=== PATIENT | male | born 1965 | race Two or more races ===

== ENCOUNTER 2018-03-30 22:44 | Emergency (ER) | payer MEDICAID, OTHER ==
[~2018-03-30] VITALS: Ht 162.6 cm; Wt 77.1 kg
[2018-03-30] MEDS ORDERED: ONDANSETRON HCL 4 MG/2 ML VIAL IV ONE (23:15)
[2018-03-30] MEDS ORDERED: HYDROmorphone HCL 2 MG/ML VL IV ONE (23:15)
[2018-03-31 01:15] VITALS: BP 145/76
== END 2018-03-31 01:50 | disposition home or self-care (01) ==
LOC: EDBD 22:44 → ER 22:46
DX: S82.031A Displaced transverse fracture of right patella, initial encounter for closed fracture (principal); M25.461 Effusion, right knee; J45.909 Unspecified asthma, uncomplicated; E11.9 Type 2 diabetes mellitus without complications; I10 Essential (primary) hypertension; F12.90 Cannabis use, unspecified, uncomplicated; W01.198A Fall on same level from slipping, tripping and stumbling with subsequent striking against other object, initial encounter; Y93.89 Activity, other specified; Y99.8 Other external cause status; Y92.89 Other specified places as the place of occurrence of the external cause
CPT/HCPCS: 29505; 73562; J2405

== ENCOUNTER 2020-06-22 06:45 | Inpatient (IN) | payer OTHER ==
[~2020-06-22] VITALS: Ht 162.6 cm; Wt 79.4 kg
[~2020-06-22 06:45] MED LIST: ASPI-543 PO; ATOR-47 PO; FERR-20 PO; LISI40TA11 PO; METF-370 PO
[2020-06-22] MEDS ORDERED: IOHEXOL 350 MG/ML 100ML IJ ONE ×3 (07:29→08:32)
[2020-06-22] MEDS ORDERED: LIDOCAINE 2%HCL (LOCAL ANESTH.) INJ 20ML MDV ONE (07:29)
[2020-06-22] MEDS ORDERED: HEPARIN IN NS 1000Units/500mL 1,500 ML ONE (07:30)
[2020-06-22] MEDS ORDERED: VERAPAMIL 2.5MG/ML INJ 2ML VIAL IV ONE (07:56)
[2020-06-22] MEDS ORDERED: ANGIOMAX 250 MG VIAL IV ONE (07:56)
[2020-06-22] MEDS ORDERED: HEPARIN SODIUM (PORCINE) 5000 UNITS/ML 1ML VIAL ONE (07:56)
[2020-06-22] MEDS ORDERED: MIDAZOLAM HCL 1MG/1ML-2 ML VIAL ONE (07:57)
[2020-06-22] MEDS ORDERED: SODIUM CHL 0.9% 0 ML ONE (07:57)
[2020-06-22] MEDS ORDERED: fentaNYL CITRATE 100 MCG/2 ML VL ONE (07:57)
[2020-06-22] MEDS ORDERED: HYDROcodone-ACET 5/325MG TAB PO PRN ×2 (09:00→13:15)
[2020-06-22] MEDS ORDERED: NITROGLYCERIN 0.4 MG SL TAB SL PRN (09:00)
[2020-06-22] MEDS ORDERED: MORPHINE SULF INJ 2 MG/ML SYRINGE 1ML IV PRN ×2 (09:00→13:15)
[2020-06-22] MEDS ORDERED: ACETAMINOPHEN 500 MG TAB PO PRN ×2 (09:00→13:15)
[2020-06-22] MEDS ORDERED: DEXTROSE (50%) 50ML SYRG IV PRN (09:30)
[2020-06-22] MEDS ORDERED: ASPirin 325 MG TAB PO ONE (09:30)
[2020-06-22] MEDS ORDERED: ASPirin 81 mg TAB PO SCH (10:00)
[2020-06-22] MEDS ORDERED: FERROUS SULFATE 325 MG TAB PO SCH (10:00)
[2020-06-22] MEDS ORDERED: LISINOPRIL 20 MG TAB PO SCH (10:00)
[2020-06-22] MEDS ORDERED: ENOXAPARIN SOD 80 MG/0.8ML SYRINGE SC SCH (10:00)
[2020-06-22] MEDS ORDERED: OPTISON 3ml Vial for INJ IV ONE (10:20)
[2020-06-22 11:19] LABS: Basophils # (auto) 0 10 ^3/uL (0-0.2); Basophils % (auto) 0.3 % (0.0-2.0); Eosinophils # (auto) 0 10 ^3/uL (0-0.8); Eosinophils % (auto) 0.7 % (0.0-7.0); Hematocrit 39.8 % (41.0-53.0); Hemoglobin 13.9 g/dL (13.5-17.5); Lymphocytes # (auto) 1.4 10 ^3/uL (0.4-5.4); Lymphocytes % (auto) 27.6 % (10.0-50.0); Mean Corpuscular Hemoglobin 30.2 pg (28.0-32.0); Mean Corpuscular Volume 86.3 fL (80.0-100.0); Monocytes # (auto) 0.2 10 ^3/uL (0-1.3); Monocytes % (auto) 3.2 % (0.0-12.0); Neutrophils # (auto) 3.5 10 ^3/uL (1.6-8.6); Neutrophils % (auto) 68.2 % (37.0-80.0); Platelet Count (auto) 240 10^3/uL (140-450); Red Blood Cells 4.61 10^6/uL (4.5-5.90); Red Cell Distribution Width 13.3 % (11.8-14.3); White Blood Cell 5.2 10^3/uL (4.4-10.8)
[2020-06-22 11:51] LABS: Calcium 8.8 mg/dL (8.5-10.1); Potassium 4.4 mmol/L (3.5-5.1)
[2020-06-22 11:58] LABS: Albumin 3.5 g/dL (3.4-5.0); BUN/Creatinine Ratio 21.6; Bilirubin, Total 0.7 mg/dL (0.2-1.0); Total Protein 7.7 g/dL (6.4-8.2)
[2020-06-22 12:11] LABS: INR 1.04 (0.9-1.15)
[2020-06-22 13:00] VITALS: BP 138/94
[2020-06-22] MEDS: ACCU-CHEK COMFORT CURVE STRIP VI SCH ×2 (13:04→19:22)
[2020-06-22] MEDS: InsuLIN REG 1unit/0.01ml Soln (100units/ml) SC SCH ×2 (13:11→17:00)
[2020-06-22] MEDS ORDERED: ALBUTEROL SULF 2.5 MG/0.5ML(0.5%) NEB SOLN NEB PRN (13:15)
[2020-06-22] MEDS ORDERED: ALPRAZolam 0.25 MG TAB PO PRN (13:15)
[2020-06-22] MEDS ORDERED: IPRATROPIUM BROM 0.5 MG/2.5ML INH SOL NEB PRN (13:15)
[2020-06-22] MEDS ORDERED: ONDANSETRON HCL 4 MG/2 ML VIAL IV PRN (13:15)
[2020-06-22 17:00] VITALS: BP 136/86
[2020-06-22] MEDS ORDERED: ATORVASTATIN 20 MG TAB PO SCH (22:00)
[2020-06-23] MEDS ORDERED: ASPirin 81 mg TAB PO SCH (09:00)
[2020-06-23] MEDS ORDERED: FAMOTIDINE 20 MG TAB PO SCH (10:00)
== END 2020-06-22 21:14 | disposition short-term general hospital (02) | DRG 191 ==
LOC: CATH 06:45 → TELE 08:57 → TELE-CENTR 11:42
PROVIDERS: ADMIT Internal Medicine Cardiovascular Disease; ATTEND Internal Medicine Cardiovascular Disease
PROC: 4A023N7 Measurement of Cardiac Sampling and Pressure, Left Heart, Percutaneous Approach (ICD-10-PCS; principal; 2020-06-22)
PROC: B215YZZ Fluoroscopy of Left Heart using Other Contrast (ICD-10-PCS; 2020-06-22)
PROC: B211YZZ Fluoroscopy of Multiple Coronary Arteries using Other Contrast (ICD-10-PCS; 2020-06-22)
DX: I25.10 Atherosclerotic heart disease of native coronary artery without angina pectoris (principal); E11.9 Type 2 diabetes mellitus without complications; I10 Essential (primary) hypertension; E78.5 Hyperlipidemia, unspecified; F17.210 Nicotine dependence, cigarettes, uncomplicated; J44.9 Chronic obstructive pulmonary disease, unspecified; Z79.84 Long term (current) use of oral hypoglycemic drugs; Z79.899 Other long term (current) drug therapy; Z96.651 Presence of right artificial knee joint; Z20.822 Contact with and (suspected) exposure to COVID-19
CPT/HCPCS: 36415; 71045; 80053; 80061; 82962; 83036; 83880; 84443; 85025; 85610; 93306; 99152; G0378; J1815; J2250; Q9956

== ENCOUNTER 2023-09-08 00:53 | Emergency (ER) | payer OTHER ==
[~2023-09-08] VITALS: Ht 162.6 cm; Wt 59.9 kg
[~2023-09-08 00:53] MED LIST changes: -FERR-20 PO; +FERR325T24 PO; -LISI40TA11 PO; +LISI40TA16 PO
[2023-09-08 01:45] VITALS: PULSE 64; RESP 16; TEMP 98.4; O2SAT 96
[2023-09-08 01:53] LABS: Basophils # (auto) 0.1 10 ^3/uL (0-0.2); Basophils % (auto) 0.9 % (0.0-2.0); Eosinophils # (auto) 0 10 ^3/uL (0-0.8); Eosinophils % (auto) 0.6 % (0.0-7.0); Hematocrit 34.1 % (41.0-53.0); Hemoglobin 11.5 g/dL (13.5-17.5); Lymphocytes # (auto) 1.9 10 ^3/uL (0.4-5.4); Lymphocytes % (auto) 27.9 % (10.0-50.0); Mean Corpuscular Hemoglobin 27.4 pg (28.0-32.0); Mean Corpuscular Hgb Conc. 33.8 g/dL (32.0-36.0); Monocytes # (auto) 0.4 10 ^3/uL (0-1.3); Monocytes % (auto) 5.9 % (0.0-12.0); Neutrophils # (auto) 4.4 10 ^3/uL (1.6-8.6); Neutrophils % (auto) 64.7 % (37.0-80.0); Nucleated Red Blood Cells % 0.1 %; Red Blood Cells 4.21 10^6/uL (4.5-5.90); Red Cell Distribution Width 14.4 % (11.8-14.3); White Blood Cell 6.9 10^3/uL (4.4-10.8)
[2023-09-08 02:09] LABS: Alanine Aminotransferase 17 U/L (7-40); Alkaline Phosphatase 97 U/L (46-116); Anion Gap 6 (5-15); Aspartate Aminotransferase 15 U/L (13-40); BUN/Creatinine Ratio 17.7 (10.0-20.0); Blood Urea Nitrogen 28 mg/dL (9-23); Calcium 9.2 mg/dL (8.5-10.1); Carbon Dioxide 24 mmol/L (20-30); Chloride 100 mmol/L (98-107); Potassium 4.1 mmol/L (3.5-5.1); Sodium 130 mmol/L (136-145)
[2023-09-08 02:10] LABS: Bilirubin, Total 0.5 mg/dL (0.2-1.0); Total Protein 7.4 g/dL (5.7-8.2)
[2023-09-08 02:12] LABS: Glucose 401 mg/dL (74-106)
[2023-09-08] MEDS: InsuLIN REG 1unit/0.01ml Soln (100units/ml) IV ONE (02:30)
[2023-09-08] MEDS: LABETALOL HCL 5 MG/ML 4ML SYRINGE IV ONE (03:08)
[2023-09-08 03:34] VITALS: BP 105/63; PULSE 68; RESP 16; O2SAT 96
== END 2023-09-08 04:00 | disposition home or self-care (01) ==
LOC: ER 00:53
DX: E11.65 Type 2 diabetes mellitus with hyperglycemia (principal); I10 Essential (primary) hypertension; E78.5 Hyperlipidemia, unspecified; J45.909 Unspecified asthma, uncomplicated; F12.10 Cannabis abuse, uncomplicated
CPT/HCPCS: 36415; 80053; 82010; 85025; 93005; 96374; 99285; J1815

== ENCOUNTER 2024-05-11 12:11 | Emergency (ER) | payer OTHER ==
[~2024-05-11] VITALS: Ht 162.6 cm; Wt 61.8 kg
[2024-05-11 12:20] VITALS: BP 153/98; PULSE 65; RESP 17; O2SAT 99
[2024-05-11] MEDS ORDERED: SODIUM CHLORIDE 0.9% 1,000 ML IV ONE (13:00)
[2024-05-11] MEDS ORDERED: InsuLIN REG 1unit/0.01ml Soln (100units/ml) IV ONE (13:00)
--- NOTE | 2024-05-11 13:02 | ED.PDOC ---
History of Present Illness HPI Comments 58-year-old male with PMHx DM presents with a chief complaint of hyperglycemia x 1 day. Patient mentions that he had cake and ice cream last night with his grandchildren and this morning had a blood sugar reading of 536. Patient mentions that in triage his blood sugar was 480 on arrival. Patient is asymptoma tic at this time and is not complaining of any pain or symptoms. Patient denies chest pain, nausea, vomiting, diarrhea, abdominal pain, SOB, headache, or cough. No other symptoms or modifying factors present at this time. Chief Complaint: Hyperglycemia Time Seen by MD: 12:46 Primary Care Provider: LORI Dejesus Notes: Medications, Allergies Allergies: Coded Allergies: NO KNOWN ALLERGIES (Unverified , 03/30/18) Home Meds Reported Medications Ferrous Sulfate (Ferrous Sulfate) 325 Mg Tab, 325 MG PO DAILY 06/17/20 Aspirin (Aspir-Low) 81 Mg Tab, 81 MG PO DAILY 06/17/20 Atorvastatin Calcium (ATORVASTATIN CALCIUM) 80 Mg Tab, 80 MG PO DAILY 06/17/20 Lisinopril (Lisinopril) 40 Mg Tab, 40 MG PO DAILY 06/17/20 Metformin Hydrochloride (Metformin Hcl) 500 Mg Tab, 500 MG PO IBID 06/17/20 Information Source: Patient Mode of Arrival: Ambulatory Severity: Moderate Timing: Hours Duration: Since onset Prehospital treatment: None Past Medical History PAST MEDICAL HISTORY: Anemia, Asthma, CAD, DM, High Lipids, HTN Surgical History: CABG Family History Family History: Reviewed,noncontributory to illness Social History Smoker: Non-Smoker Alcohol: Heavy Drugs: Marijuana Lives In: Home Constitutional: denies: chills, diaphoresis, fatigue, fever, malaise, sweats, weakness, others EENTM: denies: blurred vision, double vision, ear bleeding, ear discharge, ear drainage, ear pain, ear ringing, eye pain, eye redness, hearing loss, mouth pain, mouth swelling, nasal discharge, nose bleeding, nose congestion, nose pain, photophobia, tearing, throat pain, throat swelling, voice changes, others Respiratory: denies: cough, hemoptysis, orthopnea, SOB at rest, shortness of breath, SOB with excertion, stridor, wheezing, others Cardiovascular: denies: chest pain, dizzy spells, diaphoresis, Dyspnea on exertion, edema, irregular heart beat, left arm pain, lightheadedness, palpitations, PND, syncope, others Gastrointestinal: denies: abdomen distended, abdominal pain, blood streaked bowels, constipated, diarrhea, dysphagia, difficulty swallowing, hematemesis, melena, nausea, poor appetite, poor fluid intake, rectal bleeding, rectal pain, vomiting, others Genitourinary: denies: burning, dysuria, flank pain, frequency, hematuria, incontinence, penile discharge, penile sore, pain, testicle pain, testicle swelling, urgency, others Neurological: denies: dizziness, fainting, headache, left sided numbness, left sided weakness, numbness, paresthesia, pre-existing deficit, right sided numbness, right sided weakness, seizure, speech problems, tingling, tremors, weakness, others Musculoskeletal: denies: back pain, gout, joint pain, joint swelling, muscle pain, muscle stiffness, neck pain, others Integumetry: denies: bruises, change in color, change in hair/nails, dryness, laceration, lesions, lumps, rash, wounds, others Allergic/Immunocompromised: denies: Difficulty Healing, Frequent Infections, Hives, Itching, others Hematologic/Lymphatic: denies: anemia, blood clots, easy bleeding, easy bruising, swollen glands, others Endocrine: reports: others (HYPERGLYCEMIA); denies: excessive hunger, excessive sweating, excessive thirst, excessive urination, flushing, intolerance to cold, intolerance to heat, unexplained weight gain, unexplained weight loss Psychiatric: denies: anxiety, bipolar disorder, depression, hopeless, panic disorder, schizophrenia, sleepless, suicidal, others All Other Systems: Reviewed and Negative Physical Exam General Appearance: Moderate Distress, Normal HEENT: Normal ENT Inspection, Pharynx Normal, TMs Normal Neck: Full Range of Motion, Non-Tender, Normal, Normal Inspection Respiratory: Chest Non-Tender, Lungs Clear, No Accessory Muscle Use, No Respiratory Distress, Normal Breath Sounds Cardiovascular: No Edema, No JVD, No Murmur, No Gallop, Normal Peripheral Pulses, Regular Rate/Rhythm Breast Exam: Deferred Gastrointestinal: No Organomegaly, Non Tender, No Pulsatile Mass, Normal Bowel Sounds, Soft Genitalia: Deferred Pelvic: Deferred Rectal: Deferred Extremities: No calf tenderness, Normal capillary refill, Normal inspection, Normal range of motion, Non-tender, No pedal edema Musculoskeletal : Apperance: Normal Neurologic: Alert, 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 Was a procedure done?: No Differential Dx Considerations may include: Hyperglycemia Electrolyte imbalance X-Ray, Labs, Meds, VS Vital Signs Date Time Temp Pulse Resp B/P (MAP) Pulse Ox O2 Delivery O2 Flow Rate FiO2 05/11/24 12:20 97.3 65 17 153/98 (116) 99 Patient alert. Came in because of high blood sugar. Vitals stable. Answering all questions. He does take care himself. Blood sugar slightly better in the ER. Establish intravenous access. Was given fluids. Was given insulin. No leg swelling. No chest pain. No shortness a breath. Good muscle strength. Explained to the patient. Was told to follow up with his primary care physician. Was told to come back if there is any problem. Time of 1ST Reevaluation: 13:16 Reevaluation 1ST: Unchanged Patient Education/Counseling: Diagnosis, Treatment, Prognosis Family Education/Counseling: Diagnosis, Treatment, Prognosis Departure 1 Departure Time of Disposition: 13:04 Impression: Primary Impression: Uncontrolled diabetes mellitus Qualified Codes: E13.65 - Other specified diabetes mellitus with hyper glycemia Disposition: 01 HOME / SELF CARE / HOMELESS Condition: Good Discharged With: Self Critical Care Note Critical Care Time?: No Stability Stability form required: No Heart Score Heart Score: Heart Score Response (Comments) Value History N/A 0 EKG N/A 0 Age N/A 0 Risk Factors N/A 0 Troponin N/A 0 Total 0 I personally scribed for BONITA RANKIN MD ([email or web address]) on 05/11/24 at 13:02. Electronically submitted by Fer Benavides ([email or web address]). BONITA RANKIN MD May 11, 2024 13:02
== END 2024-05-11 14:09 | disposition left against medical advice (07) ==
LOC: ER 12:11
DX: E11.65 Type 2 diabetes mellitus with hyperglycemia (principal); E78.5 Hyperlipidemia, unspecified; J45.909 Unspecified asthma, uncomplicated; F12.90 Cannabis use, unspecified, uncomplicated; F10.10 Alcohol abuse, uncomplicated; Z79.899 Other long term (current) drug therapy; Z79.84 Long term (current) use of oral hypoglycemic drugs; Z98.890 Other specified postprocedural states
CPT/HCPCS: 82947

== ENCOUNTER 2025-02-05 23:23 | Inpatient (IN) | payer OTHER ==
[~2025-02-05] VITALS: Ht 162.6 cm; Wt 63.0 kg
[2025-02-06] VITALS (9 sets, daily range): BP systolic 148–201; BP diastolic 71–103; PULSE 67–86; RESP 14–19; TEMP 97.8–98.7; O2SAT 98–99
--- NOTE | 2025-02-06 00:59 | ED.PDOC ---
History of present illness HPI Comments HPI: 59-year-old male who came to ER for high blood sugar. For the past 2 weeks, patient has been experiencing abdominal discomfort, associated dizziness and lightheadedness, and dysuria. Noted also that his blood sugar levels has been elevated despite taking his metformin. Blood sugar level was 515 earlier. Denies any nausea or vomiting or fever Past Medical History: Hypertension, diabetes, coronary artery disease, dyslipidemia Past Surgical History: Cardiac stents, heart surgery, left knee surgery, eye surgery Social History: Denies HPI: Poor Historian. REVIEW OF SYSTEMS: CONSTITUTIONAL: Denies acute: fever, diaphoresis, chills, HEAD: Denies acute: headache, photophobia Eyes: Denies acute: Double vision, vision loss, eye pain, eye discharge. EARS: Denies acute: tinnitus, hearing loss, ear discharge, ear pain, THROAT: Denies acute: sore throat, swelling, difficulty swallowing , pain with swallowing, change in voice. NECK: Denies acute: neck pain, neck swelling, stiff neck. HEART: Denies acute : chest pain, palpitations, LUNGS: Denies acute: SOB, wheezing, cough, hemoptysis ABDOMEN: Denies acute: Nausea, Vomiting, diarrhea, melena , hematemesis, hematochezia SKIN: Denies acute: rash, redness, lesions, itchiness. EXTREMITIES: Denies acute: calf pain, numbness, tingling, weakness, denies pain in extremity. Denies acute: Low back pain. Neuro: Denies acute: focal neurological deficit, motor or sensory focal neurological deficit, tremors, seizure like activity, confusion, change in mental status, loss of bowel or bladder function, cauda equina like symptoms. : Denies acute: hematuria, flank pain, increase in urinary frequency. PSYCH: Denies acute: hallucination, suicidal ideation, homicidal ideation. PHYSICAL EXAM: General: -----no---acute distress, awake and alert. Head: normocephalic, atraumatic. No raccoon's eyes, no calzada sign. Neck: supple, trachea is midline, no swelling. Throat: Normal phonation. Eyes:, no erythema, no purulent discharge, no proptosis, no icterus. Heart: regular rate, regular rhythm, no significant murmur appreciated. Lungs: no apparent respiratory distress, Able to speak in full sentences. No wheezing, no rhonchi, no crackles. No stridors Clear to auscultation bilaterally. Abdomen: Minimal nonspecific generalized tender to palpation, non distended, soft, no guarding, no rebound, + bowel sounds. Neuro: Awake, Alert, oriented to name, self, situation, follows commands GCS=15. Speech is normal. Skin: no petechia, no purpura, no cyanosis, non-pale, not jaundice. Lower extremities: --no - Pitting edema no deformity, no focal swelling, no calf TTP. Makes eye contact. moves all four extremities. Face: no apparent facial droop. Ambulating in the ED independently. ED COURSE: DISCLAIMER: This medical document was created using an electronic medical record system with voice recognition software and computerized dictation system. Although this document has been carefully reviewed, there might still be some phonetic and typographical errors. Occasional wrong-word or "sound-alike" substitutions may have occurred due to the inherent limitations of voice recognition software. These areas are purely typographical due to imperfections of the software programs and do not reflect any compromise in the patient's medical care. Please read the chart carefully and recognize, using context, where these substitutions have occurred. Chief Complaint: Hyperglycemia Time Seen by MD: 01:02 Primary Care Provider: LORI History of present illness: Nurses Notes, Allergies Allergies: Coded Allergies: NO KNOWN ALLERGIES (Unverified , 03/30/18) Home Meds Reported Medications Metoprolol Tartrate (Metoprolol Tartrate) 50 Mg Tab, 50 MG PO BID for 30 Days, MG 02/06/25 Metformin Hydrochloride (Metformin Hcl) 500 Mg Tab, 1000 MG PO IBID for 30 Days, MG 02/06/25 Ferrous Sulfate (Ferrous Sulfate) 325 Mg Tab, 325 MG PO DAILY 06/17/20 Aspirin (Aspir-Low) 81 Mg Tab, 81 MG PO DAILY 06/17/20 Atorvastatin Calcium (ATORVASTATIN CALCIUM) 80 Mg Tab, 80 MG PO DAILY 06/17/20 Lisinopril (Lisinopril) 40 Mg Tab, 40 MG PO DAILY 06/17/20 Information Source: Patient Mode of Arrival: Ambulatory Timing: Hours Past Medical History PAST MEDICAL HISTORY: Anemia, Asthma, CAD, DM, High Lipids, HTN Surgical History: CABG Family History Family History: Reviewed,noncontributory to illness Social History Smoker: Non-Smoker Alcohol: Heavy Drugs: Marijuana Lives In: Home Was a procedure done? Was a procedure done?: No Differential Diagnosis (DM) Differential Diagnosis: Dehydration, Diabetic Coma, DKA, Electrolyte Abnormality, Encephalopathy, Hyperglycemia, Hyperosmolar State, UTI X-Ray, Labs, Meds, VS Vital Signs Date Time Temp Pulse Resp B/P (MAP) Pulse Ox O2 Delivery O2 Flow Rate FiO2 02/06/25 08:44 97.8 68 20 189/107 (134) 99 97.8 02/06/25 08:44 68 20 99 Room Air 02/06/25 04:37 98.2 65 18 167/90 (115) 99 98.2 02/06/25 01:52 170/108 02/06/25 01:44 67 19 98 Room Air* 0 21 02/06/25 01:44 98.4 67 19 170/108 (128) 98 98.4 02/05/25 23:25 98.4 73 16 174/110 97 98.4 Lab Test 02/06/25 07:03 02/06/25 04:27 02/06/25 03:29 02/06/25 01:34 Range/Units Lipase 66 H 12-53 U/L POC Glucose 313 H 343 H 435 *H 70-106 mg/dl Test 02/06/25 01:21 02/06/25 00:40 02/05/25 23:57 02/05/25 23:37 Range/Units Troponin I High Sensitivity 15 14 </=54 ng/L White Blood Count 5.7 4.4-10.8 10^3/uL Red Blood Count 4.27 L 4.5-5.90 10^6/uL Hemoglobin 11.5 L 13.5-17.5 g/dL Hematocrit 34.2 L 41.0-53.0 % Mean Corpuscular Volume 80.2 80.0-100.0 fL Mean Corpuscular Hemoglobin 26.9 L 28.0-32.0 pg Mean Corpuscular Hemoglobin Concent 33.5 32.0-36.0 g/dL Red Cell Distribution Width 15.3 H 11.8-14.3 % Platelet Count 239 140-450 10^3/uL Mean Platelet Volume 8.9 6.9-10.8 fL Neutrophils (%) (Auto) 57.4 37.0-80.0 % Lymphocytes (%) (Auto) 35.0 10.0-50.0 % Monocytes (%) (Auto) 5.8 0.0-12.0 % Eosinophils (%) (Auto) 0.8 0.0-7.0 % Basophils (%) (Auto) 1.0 0.0-2.0 % Neutrophils # (Auto) 3.3 1.6-8.6 10 ^3/uL Lymphocytes # (Auto) 2.0 0.4-5.4 10 ^3/uL Monocytes # (Auto) 0.3 0-1.3 10 ^3/uL Eosinophils # (Auto) 0 0-0.8 10 ^3/uL Basophils # (Auto) 0.1 0-0.2 10 ^3/uL Nucleated Red Blood Cells 0.0 % Sodium Level 134 L 136-145 mmol/L Potassium Level 4.2 3.5-5.1 mmol/L Chloride Level 96 L 98-107 mmol/L Carbon Dioxide Level 29 20-31 mmol/L Anion Gap 9 5-15 Blood Urea Nitrogen 22 9-23 mg/dL Creatinine 1.26 0.700-1.30 mg/dL Glomerular Filtration Rate Calc 66 >90 mL/min BUN/Creatinine Ratio 17.5 10.0-20.0 Serum Glucose 471 *H 74-106 mg/dL Lactic Acid Level 1.0 0.4-2.0 mmol/L Calcium Level 8.8 8.7-10.4 mg/dL Magnesium Level 1.8 1.6-2.6 mg/dL Total Bilirubin 0.4 0.2-1.0 mg/dL Aspartate Amino Transferase (AST) 23 13-40 U/L Alanine Aminotransferase (ALT) 21 7-40 U/L Alkaline Phosphatase 93 46-116 U/L Total Protein 6.9 5.7-8.2 g/dL Albumin 3.8 3.2-4.8 g/dL Lipase 73 H 12-53 U/L Beta-Hydroxybutyric Acid 0.780 H < 0.4 mmol/L Urine Color Light-yellow Yellow Urine Clarity Clear Clear Urine pH 6.5 5.0-9.0 Urine Specific [place] 1.026 1.001-1.035 Urine Protein 2+ H Negative Urine Ketones Negative Negative Urine Blood Negative Negative /uL Urine Nitrite Negative Negative Urine Bilirubin Negative Negative Urine Urobilinogen Normal Negative mg/dL Urine Leukocyte Esterase Negative Negative /uL Urine RBC 2 0 - 3 /hpf Urine Microscopic WBC < 1 0-3 /HPF Urine Squamous Epithelial Cells None seen <5 /hpf Urine Bacteria None seen None Seen /hpf Urine Glucose 4+ H Normal mg/dL Urine Opiates Screen Neg NEGATIVE Urine Fentanyl Screen Neg NEGATIVE Urine Barbiturates Screen Neg NEGATIVE Urine Phencyclidine Screen Neg NEGATIVE Urine Amphetamines Screen Neg NEGATIVE Urine Benzodiazepines Screen Neg NEGATIVE Urine Cocaine Screen Neg NEGATIVE Urine Cannabinoids Screen Neg NEGATIVE POC Glucose 493 *H 70-106 mg/dl [place] [address] Ph: [phone] DIAGNOSTIC IMAGING Diagnostic Imaging Report : [id number] Signed PATIENT: DANAE RICHARD ACCT: [id number] UNIT: [id number] : 1965 LOC: ER ROOM / BED: / AGE / SEX: 59 / M ADM STATUS: REG ER SERVICE 013 ORDERING PHYSICIAN: SETH JESUS DO PROCEDURE(s): ABPL - CT AB PEL WO CON-NO ORAL OR IV REASON: abd pain ORDER NUMBER(s): [id number], ACCESSION NUMBER(s): [id number] MEDICAL RECORDS NUMBER: [id number] PROCEDURE: CT CT AB PEL WO CON-NO ORAL OR IV DATE: 02/06/2025 01:47 AM HISTORY: abd pain TECHNIQUE: CT of the abdomen and pelvis is performed without IV contrast. CONTRAST: none Oral Contrast: No oral contrast was utilized. COMPARISON: None RADIATION DOSE INFORMATION: Automated exposure control dose reduction techniques were used. FINDINGS: Lung bases: 7 mm nodule is seen in the right middle lobe. 4 mm nodule is seen at the base. Further evaluation is needed. Mediastinum: Coronary artery calcifications are noted. Liver: The liver is normal in size. There is no focal liver lesion. Biliary ducts: There is no evidence of intrahepatic or extrahepatic biliary ductal dilatation. Gallbladder: No abnormality is seen of the gallbladder. Spleen: The spleen is normal in size without focal lesion. Stomach: The stomach appears unremarkable. Pancreas: The pancreas is unremarkable. Adrenal glands: The adrenal glands are unremarkable. Kidneys: The kidneys are normal in size and are symmetric. There is no evidence of hydronephrosis. No focal renal lesion is noted. Aorta and IVC: The aorta and IVC are patent and are normal in size. Diffuse atherosclerotic calcification is noted. Mesenteric vessels: Major mesenteric vessels appear to be intact. Bowel: The visualized portions of the small and large bowel are normal in caliber. Appendix: The appendix is unremarkable. Pelvis:Pelvic structures appear unremarkable. Lymph nodes: There is no evidence of lymphadenopathy. Osseous structures: The osseous structures are intact. No lytic or blastic osseous lesion is noted. Free fluid/free air: None IMPRESSION: 1. No acute process is seen. No findings are seen to explain the patient's symptoms. 2. Pulmonary nodules as above. Follow-up is needed. ATED BY: ULISES BOURGEOIS MD DICTATED DATE/TIME: 02/06/25245 SIGNED BY: ULISES BOURGEOIS MD SIGNED DATE/TIME: 02/06/25245 CC: [place] [address] Ph: [phone] DIAGNOSTIC IMAGING Diagnostic Imaging Report : [id number] Signed PATIENT: DANAE RICHARD ACCT: [id number] UNIT: [id number] : 1965 LOC: ER ROOM / BED: / AGE / SEX: 59 / M ADM STATUS: REG ER SERVICE [id number] ORDERING PHYSICIAN: SETH JESUS DO PROCEDURE(s): CXRP - CHEST PORTABLE REASON: hyperglycemia ORDER NUMBER(s): [id number], ACCESSION NUMBER(s): [id number] MEDICAL RECORDS NUMBER: [id number] PROCEDURE: XY CHEST PORTABLE DATE: 02/06/2025 01:45 AM HISTORY: hyperglycemia Views:1 COMPARISON: CHEST XRAY 1 VIEW on DOS: 06/22/20 FINDINGS/IMPRESSION: Lungs: Diffuse minor chronic changes of the lungs are noted. No acute lung pathology is seen. Mediastinum: Mediastinal structures appear unremarkable... Skeletal: The skeletal structures appear unremarkable. ATED BY: ULISES BOURGEOIS MD DICTATED DATE/TIME: 02/06/25207 SIGNED BY: ULISES BOURGEOIS MD SIGNED DATE/TIME: 02/06/25207 CC: Time of 1ST Reevaluation: 00:58 Reevaluation 1ST: Unchanged Patient Education/Counseling: Diagnosis, Treatment Family Education/Counseling: No Family Present Comments MDM: patient presented with the above HPI.---hyperglycemia---workup was initiated. patient was found with the above mentioned diagnosis. the following medications were ordered: please refer to order lists of meds and tests obtained by myself Dr. Jesus. Patient ED course and VS have been stabilized. Patient has been reassessed in the ED and remained in a stable condition. Pertinent incidental findings were discussed with the patient and/or family. Patient/family voices understanding and is agreeable with plan. Patient has been observed in the ED adequate length of time to insure im provement/stability. Escalation of care considered: Consideration of escalation to observation or admission Patient was given hydralazine for blood pressure control. Patient was given fluids. Patient was given insulin. Patient is nine DKA Patient was ADMITTED to the medicine team for further evaluation and treatment of their presentation. All the reports of any imaging studies that were ordered by myself were reviewed by myself. SEPSIS Sepsis Screen Date sepsis recognized/suspect: Feb 05, 2025 Time Sepsis recognized/suspect: 2327 Recent Procedure: No On Antibiotic Therapy: No Respiratory Rate >20: No Heart Rate >90: No Temp<36 C (96.8 F) or >38.3 C: No SBP <90 or MAP <65 mmHG: No New Acute Mental Status Change: No Is the patient on CPAP, BIPAP,: No Physician Orders Electrocardigram (02/05/25 23:37) Electrocardigram (02/06/25 00:37) Electrocardigram (02/06/25 02:37) Sexual Health Physician (02/05/25 ) Chest Portable (02/05/25 23:57) Ct Ab Pel Wo Con-No Oral Or Iv (02/06/25 01:32) * Gi D[facility] [employer] Cabinet Finisher (02/06/25 01:52) Vital Signs Date Time Temp Pulse Resp B/P (MAP) Pulse Ox O2 Delivery O2 Flow Rate FiO2 02/06/25 08:44 97.8 68 20 189/107 (134) 99 97.8 02/06/25 08:44 68 20 99 Room Air 02/06/25 04:37 98.2 65 18 167/90 (115) 99 98.2 02/06/25 01:52 170/108 02/06/25 01:44 67 19 98 Room Air* 0 21 02/06/25 01:44 98.4 67 19 170/108 (128) 98 98.4 02/05/25 23:25 98.4 73 16 174/110 97 98.4 Laboratory Tests Test 02/06/25 00:40 Lactic Acid Level 1.0 mmol/L (0.4-2.0) White Blood Count 5.7 10^3/uL (4.4-10.8) Departure 1 Departure Time of Disposition: 01:33 Impression: Primary Impression: Hyperglycemia Additional Impressions: Pulmonary nodule Uncontrolled diabetes mellitus Disposition: ADMITTED INPATIENT Admit to: [facility] Condition: Guarded Discharged With: Self Critical Care Note Critical Care Time?: Yes (45 min-critical care time only) I personally scribed for SETH JESUS DO ([email or web address]) on 02/06/25 at 00:59. Electronically submitted by Romeo Lal ([email or web address]). I personally scribed for SETH JESUS DO ([email or web address]) on 02/06/25 at 01:03. Electronically submitted by Romeo Lal ([email or web address]). I personally scribed for SETH JESUS DO ([email or web address]) on 02/07/25 at 04:42. Electronically submitted by Yariel Lovett ([email or web address]). SETH JESUS DO Feb 06, 2025 00:59
[2025-02-06 01:06] LABS: Hematocrit 34.2 % (41.0-53.0); Hemoglobin 11.5 g/dL (13.5-17.5); Mean Corpuscular Hemoglobin 26.9 pg (28.0-32.0); Mean Corpuscular Volume 80.2 fL (80.0-100.0); Nucleated Red Blood Cells % 0.0 %
[2025-02-06 01:20] LABS: Alanine Aminotransferase 21 U/L (7-40); Albumin 3.8 g/dL (3.2-4.8); Alkaline Phosphatase 93 U/L (46-116); Anion Gap 9 (5-15); BUN/Creatinine Ratio 17.5 (10.0-20.0); Blood Urea Nitrogen 22 mg/dL (9-23); Calcium 8.8 mg/dL (8.7-10.4); Carbon Dioxide 29 mmol/L (20-31); Magnesium 1.8 mg/dL (1.6-2.6); Potassium 4.2 mmol/L (3.5-5.1); Total Protein 6.9 g/dL (5.7-8.2)
[2025-02-06 01:21] LABS: Bilirubin, Total 0.4 mg/dL (0.2-1.0)
[2025-02-06 01:26] LABS: Chloride 96 mmol/L (98-107); Lipase 73 U/L (12-53); Sodium 134 mmol/L (136-145)
[2025-02-06 01:27] LABS: Glucose 471 mg/dL (74-106)
[2025-02-06] MEDS: SODIUM CHLORIDE 0.9% 1,000 ML IV ONE ×3 (01:46→13:00)
[2025-02-06] MEDS: InsuLIN REG 1unit/0.01ml Soln (100units/ml) IV ONE (01:51)
[2025-02-06] MEDS: hydrALAZINE HCL 20 MG/ML VL IV ONE (01:52)
[2025-02-06] MEDS ORDERED: HYDROcodone-ACET 5/325MG TAB PO PRN (02:00)
[2025-02-06] MEDS ORDERED: DOCUSATE SOD 100 MG CAP PO PRN (02:00)
[2025-02-06] MEDS ORDERED: ACETAMINOPHEN 325 MG TAB PO PRN (02:00)
[2025-02-06] MEDS ORDERED: TEMAZEPAM 15 MG CAP PO PRN (02:00)
[2025-02-06] MEDS ORDERED: ONDANSETRON HCL 4 MG/2 ML VIAL IV PRN (02:00)
[2025-02-06] MEDS ORDERED: DEXTROSE (50%) 50ML SYRG IV PRN (02:00)
[2025-02-06] MEDS ORDERED: MORPHINE SULFATE INJ 2 MG/ml SYRG IV PRN ×2 (02:00→09:45)
--- NOTE | 2025-02-06 02:11 | DVH ---
MEDICAL RECORDS NUMBER: [id number] PROCEDURE: XY CHEST PORTABLE DATE: 02/06/2025 01:45 AM HISTORY: hyperglycemia Views:1 COMPARISON: CHEST XRAY 1 VIEW on DOS: 06/22/20 FINDINGS/IMPRESSION: Lungs: Diffuse minor chronic changes of the lungs are noted. No acute lung pathology is seen. Mediastinum: Mediastinal structures appear unremarkable... Skeletal: The skeletal structures appear unremarkable.
[2025-02-06 02:30] LABS: Urine Protein, UAD 2+ (Negative)
--- NOTE | 2025-02-06 02:48 | DVH ---
MEDICAL RECORDS NUMBER: [id number] PROCEDURE: CT CT AB PEL WO CON-NO ORAL OR IV DATE: 02/06/2025 01:47 AM HISTORY: abd pain TECHNIQUE: CT of the abdomen and pelvis is performed without IV contrast. CONTRAST: none Oral Contrast: No oral contrast was utilized. COMPARISON: None RADIATION DOSE INFORMATION: Automated exposure control dose reduction techniques were used. FINDINGS: Lung bases: 7 mm nodule is seen in the right middle lobe. 4 mm nodule is seen at the base. Further evaluation is needed. Mediastinum: Coronary artery calcifications are noted. Liver: The liver is normal in size. There is no focal liver lesion. Biliary ducts: There is no evidence of intrahepatic or extrahepatic biliary ductal dilatation. Gallbladder: No abnormality is seen of the gallbladder. Spleen: The spleen is normal in size without focal lesion. Stomach: The stomach appears unremarkable. Pancreas: The pancreas is unremarkable. Adrenal glands: The adrenal glands are unremarkable. Kidneys: The kidneys are normal in size and are symmetric. There is no evidence of hydronephrosis. No focal renal lesion is noted. Aorta and IVC: The aorta and IVC are patent and are normal in size. Diffuse atherosclerotic calcification is noted. Mesenteric vessels: Major mesenteric vessels appear to be intact. Bowel: The visualized portions of the small and large bowel are normal in caliber. Appendix: The appendix is unremarkable. Pelvis:Pelvic structures appear unremarkable. Lymph nodes: There is no evidence of lymphadenopathy. Osseous structures: The osseous structures are intact. No lytic or blastic osseous lesion is noted. Free fluid/free air: None IMPRESSION: 1. No acute process is seen. No findings are seen to explain the patient's symptoms. 2. Pulmonary nodules as above. Follow-up is needed.
[2025-02-06 03:05] LABS: Cannabinoid Screen, Urine Neg (NEGATIVE)
[2025-02-06 03:07] LABS: Amphetamine Screen, Urine Neg (NEGATIVE); Barbiturate Scree,Urine Neg (NEGATIVE); Benzodiazephine Screen, Urine Neg (NEGATIVE); Cocaine Screen, Urine Neg (NEGATIVE); Opiate Scree,Urine Neg (NEGATIVE); Phencyclidine Screen, Urine Neg (NEGATIVE)
[2025-02-06] MEDS: INSULIN LANTUS (GLARGINE) 1 /0.01ml (100units/ml) SC ONE (03:39)
[2025-02-06] MEDS: SODIUM CHLORIDE 0.9% 1,000 ML IV SCH ×2 (03:40→14:03)
[2025-02-06] MEDS: ACCU-CHEK COMFORT CURVE STRIP VI SCH (04:34)
[2025-02-06] MEDS: InsuLIN REG 1unit/0.01ml Soln (100units/ml) SC SCH (04:37)
[2025-02-06] MEDS: INSULIN LANTUS (GLARGINE) 1 /0.01ml (100units/ml) SC SCH ×2 (09:12→21:42)
[2025-02-06] MEDS ORDERED: NITROGLYCERIN 0.4 MG SL TAB SL PRN (09:45)
--- NOTE | 2025-02-06 09:46 | DVHHP2 ---
Admitting Diagnosis: high blood sugar History of Present Illness 59-year-old male who came to ER for high blood sugar. For the past 2 weeks, patient has been experiencing abdominal discomfort, associated dizziness and lightheadedness, and dysuria. Noted also that his blood sugar levels has been elevated despite taking his metformin. Blood sugar level was 515 earlier. Denies any nausea or vomiting or fever While in the emergency department the patient was evaluated by the provider, As per provider: Labs, vital signs, and imagining monitored. Patient will be admitted for further evaluation and treatment. I discussed admission with the patient/family and is in agreement to treatment plan. Patient Family History: Diabetes mellitus G8 FATHER Allergies: Coded Allergies: NO KNOWN ALLERGIES (Unverified , 03/30/18) Home Meds Reported Medications Metoprolol Tartrate (Metoprolol Tartrate) 50 Mg Tab, 50 MG PO BID for 30 Days, MG 02/06/25 Metformin Hydrochloride (Metformin Hcl) 500 Mg Tab, 1000 MG PO IBID for 30 Days, MG 02/06/25 Ferrous Sulfate (Ferrous Sulfate) 325 Mg Tab, 325 MG PO DAILY 06/17/20 Aspirin (Aspir-Low) 81 Mg Tab, 81 MG PO DAILY 06/17/20 Atorvastatin Calcium (ATORVASTATIN CALCIUM) 80 Mg Tab, 80 MG PO DAILY 06/17/20 Lisinopril (Lisinopril) 40 Mg Tab, 40 MG PO DAILY 06/17/20 Current Medications Current Medications Medications (Trade) Dose Ordered Sig/Myke Route PRN Reason Start Time Stop Time Status Last Admin Diagnostic Test (Pha) (Accu-Chek Comfort Curve T) 1 strip IQ4HR 02/06/25 04:00 02/06/25 20:02 Insulin Human Regular (InsuLIN R) IQ4HR SC 02/06/25 04:00 02/06/25 20:02 Dextrose 50 ml UD PRN IV Blood Sugar LESS THAN 60 02/06/25 02:00 Sodium Chloride 1,000 ml @ 200 mls/hr Q5H IV 02/06/25 02:00 02/06/25 12:29 DC 02/06/25 03:40 Acetaminophen (Tylenol Tablet) 325 mg Q4HP PRN PO MILD PAIN (1-3 PAIN SCALE) 02/06/25 02:00 Acetaminophen/ Hydrocodone Bitart ([place] 5/325MG Tab) 1 tab Q4HP PRN PO MODERATE PAIN (4-6 PAIN SCALE) 02/06/25 02:00 Temazepam (Restoril) 15 mg QHSP PRN PO FOR INSOMNIA 02/06/25 02:00 Ondansetron HCl (Zofran) 4 mg Q4HP PRN IV NAUSEA / VOMITING 02/06/25 02:00 Docusate Sodium (Colace Capsule) 100 mg BIDPRN PRN PO FOR CONSTIPATION 02/06/25 02:00 Morphine Sulfate 2 mg Q4HPRN PRN IV SEVERE PAIN (7-10 PAIN SCALE) 02/06/25 02:00 Insulin Glargine (Lantus) 10 units DAILY@1000 SC 02/06/25 10:00 Hold 02/06/25 09:12 Nitroglycerin (Ntrostat Sublingual) 0.4 mg Q5MINP PRN SL FOR CHEST PAIN 02/06/25 09:45 Morphine Sulfate 2 mg Q30M PRN IV FOR CHEST PAIN 02/06/25 09:45 Sodium Chloride 1,000 ml @ 100 mls/hr Q10H IV 02/06/25 12:30 02/06/25 14:03 Atorvastatin Calcium (Lipitor) 80 mg HS PO 02/06/25 22:00 Lisinopril (Zestril Tablet) 40 mg DAILY PO 02/07/25 10:00 Hydralazine HCl (Apresoline Injection) 10 mg Q6HP PRN IV SBP>150 02/06/25 12:30 02/06/25 20:35 Insulin Glargine (Lantus) 15 units BID@0700,2200 SC 02/06/25 22:00 Review of Systems Constitutional: denies chills, denies fever, denies malaise Eyes: denies eye pain, denies vision change ENT: denies ear pain, denies headache, denies nasal congestion, denies painful swallowing, denies voice change Cardiovascular: denies chest pain, denies edema, denies orthopnea, denies palpitations, denies paroxysmal nocturnal dyspnea Respiratory: denies cough, denies shortness of breath Gastrointestinal: denies constipation, denies diarrhea, denies nausea, denies vomiting Genitourinary: denies dysuria, denies frequent urination, denies urethral discharge Musculoskeletal: denies back pain, denies joint pain, denies muscle pain Skin: denies bruising, denies itching, denies rash Neurological: denies focal weakness, denies headache, denies sensory changes Psychiatric: denies anxiety, denies depression Endocrine: denies polydipsia, denies polyuria Hematologic/Lymphatic: denies easy bleeding, denies easy bruising, denies enlarged lymph nodes Allergic/Immunologic: denies allergy, denies hives Vital Signs Vital Signs Date Time Temp Pulse Resp B/P (MAP) Pulse Ox O2 Delivery O2 Flow Rate FiO2 02/06/25 20:35 195/94 02/06/25 20:34 98.0 77 18 99 98.0 02/06/25 20:00 Room Air* 0 21 Physical Exam General Appearance: alert, no distress HEENT: EOMI, PERRLA, normal external inspect of ears, no icterus, no nasal drainage Neck: no carotid bruit, no jugular venous distention (JVD), no lymphadenopathy Chest: normal thorax Respiratory: clear to auscultation, normal air movement Cardiovascular: regular rate and rhythm, no diastolic murmur, no jugular venous distention (JVD), no rub, no systolic murmur Abdominal: soft, no hepatomegaly, no mass, no splenomegaly, no tenderness Genitourinary: grossly normal external Musculoskeletal: no joint tenderness, no swelling Extremities: normal pulses, no calf tenderness, no clubbing, no cyanosis, no edema Skin: no bruising, no jaundice, no rash Neurological: alert, No focal deficit SEPSIS Sepsis Screen Date sepsis recognized/suspect: Feb 06, 2025 Time Sepsis recognized/suspect: 0144 Recent Procedure: No On Antibiotic Therapy: No Respiratory Rate >20: No Heart Rate >90: No Temp<36 C (96.8 F) or >38.3 C: No SBP <90 or MAP <65 mmHG: No New Acute Mental Status Change: No Is the patient on CPAP, BIPAP,: No Physician Orders Electrocardigram (02/06/25 00:37) Electrocardigram (02/06/25 02:37) Logging Tractor Operator Swamp (02/05/25 ) Chest Portable (02/05/25 23:57) Ct Ab Pel Wo Con-No Oral Or Iv (02/06/25 01:32) Glucose Blood (Accu-Chek Comfort Curve T (02/06/25 04:00) Insulin R (Human) (Insulin R) (02/06/25 04:00) Dextrose 50% Syringe (02/06/25 02:00) Acetaminophen Tablet (Tylenol Tablet) (02/06/25 02:00) Hydrocodone-Acet 5/325mg Tab ([place] 5/32 (02/06/25 02:00) Temazepam (Restoril) (02/06/25 02:00) Ondansetron Hcl (Zofran) (02/06/25 02:00) Docusate Sodium Capsule (Colace Capsule) (02/06/25 02:00) Complete Blood Count (02/07/25 04:00) Comprehensive Metabolic Panel (02/07/25 04:00) Morphine Sulfate Injection (02/06/25 02:00) Insulin Lantus (Glargine) (Lantus) (02/06/25 10:00) * Gi Dvh Disc Jockey (02/06/25 01:52) Admit (02/06/25 09:45) Nitroglycerin Sublingual (Ntrostat Subli (02/06/25 09:45) Morphine Sulfate Injection (02/06/25 09:45) Stat Ekg For Chest Pain (02/06/25 09:45) Notify Md Of Changes From Base (02/06/25 09:45) Warehouse Puller For 24 Hours (02/06/25 09:45) Emergency Dysrhythmia Protocol (02/06/25 09:45) Rhythm Strips Once Every Shift (02/06/25 09:45) Oxygen By Nasal Cannula (02/06/25 09:45) Sodium Chloride 0.9% (02/06/25 12:30) Lisinopril Tablet (Zestril Tablet) (02/07/25 10:00) Hydralazine Injection (Apresoline Inject (02/06/25 12:30) Insulin Lantus (Glargine) (Lantus) (02/06/25 22:00) Clear Liq Diet (02/06/25 Lunch) Atorvastatin (Lipitor) (02/06/25 22:00) * Preform Plate Maker Consult (02/06/25 ) Vital Signs Date Time Temp Pulse Resp B/P (MAP) Pulse Ox O2 Delivery O2 Flow Rate FiO2 02/06/25 20:35 195/94 02/06/25 20:34 98.0 77 18 195/94 (127) 99 98.0 02/06/25 20:00 77 18 99 Room Air* 0 21 02/06/25 17:00 98.7 75 16 148/71 (96) 98 98.7 02/06/25 13:30 80 149/74 (99) 02/06/25 13:30 82 16 201/103 (135) 98 02/06/25 13:18 Room Air* 0 21 02/06/25 13:18 98.3 74 14 201/103 (135) 98 98.3 02/06/25 12:56 201/103 02/06/25 12:10 97.8 73 18 189/91 (123) 98 97.8 02/06/25 08:44 97.8 68 20 189/107 (134) 99 97.8 02/06/25 08:44 68 20 99 Room Air 02/06/25 04:37 98.2 65 18 167/90 (115) 99 98.2 02/06/25 01:52 170/108 02/06/25 01:44 67 19 98 Room Air* 0 21 02/06/25 01:44 98.4 67 19 170/108 (128) 98 98.4 02/05/25 23:25 98.4 73 16 174/110 97 98.4 Laboratory Tests Test 02/06/25 00:40 Lactic Acid Level 1.0 mmol/L (0.4-2.0) White Blood Count 5.7 10^3/uL (4.4-10.8) Medications Medications Dose Ordered Sig/Myke Route Start Time Stop Time Status Last Admin Dose Admin Hydralazine HCl 10 mg Q6HP PRN IV 02/06/25 12:30 02/06/25 20:35 Insulin Glargine 10 units DAILY@1000 SC 02/06/25 10:00 Hold 02/06/25 09:12 Sodium Chloride 1,000 ml @ 100 mls/hr Q10H IV 02/06/25 12:30 02/06/25 14:03 Sodium Chloride 1,000 ml @ 1,000 mls/hr Q1H ONCE IV 02/06/25 12:45 02/06/25 13:46 DC 02/06/25 13:00 Results Labs Test 02/06/25 19:54 02/06/25 07:03 02/06/25 01:21 02/06/25 00:40 Range/Units POC Glucose 150 H 70-106 mg/dl Lipase 66 H 12-53 U/L Troponin I High Sensitivity 15 </=54 ng/L White Blood Count 5.7 4.4-10.8 10^3/uL Red Blood Count 4.27 L 4.5-5.90 10^6/uL Hemoglobin 11.5 L 13.5-17.5 g/dL Hematocrit 34.2 L 41.0-53.0 % Mean Corpuscular Volume 80.2 80.0-100.0 fL Mean Corpuscular Hemoglobin 26.9 L 28.0-32.0 pg Mean Corpuscular Hemoglobin Concent 33.5 32.0-36.0 g/dL Red Cell Distribution Width 15.3 H 11.8-14.3 % Platelet Count 239 140-450 10^3/uL Mean Platelet Volume 8.9 6.9-10.8 fL Neutrophils (%) (Auto) 57.4 37.0-80.0 % Lymphocytes (%) (Auto) 35.0 10.0-50.0 % Monocytes (%) (Auto) 5.8 0.0-12.0 % Eosinophils (%) (Auto) 0.8 0.0-7.0 % Basophils (%) (Auto) 1.0 0.0-2.0 % Neutrophils # (Auto) 3.3 1.6-8.6 10 ^3/uL Lymphocytes # (Auto) 2.0 0.4-5.4 10 ^3/uL Monocytes # (Auto) 0.3 0-1.3 10 ^3/uL Eosinophils # (Auto) 0 0-0.8 10 ^3/uL Basophils # (Auto) 0.1 0-0.2 10 ^3/uL Nucleated Red Blood Cells 0.0 % Sodium Level 134 L 136-145 mmol/L Potassium Level 4.2 3.5-5.1 mmol/L Chloride Level 96 L 98-107 mmol/L Carbon Dioxide Level 29 20-31 mmol/L Anion Gap 9 5-15 Blood Urea Nitrogen 22 9-23 mg/dL Creatinine 1.26 0.700-1.30 mg/dL Glomerular Filtration Rate Calc 66 >90 mL/min BUN/Creatinine Ratio 17.5 10.0-20.0 Serum Glucose 471 *H 74-106 mg/dL Lactic Acid Level 1.0 0.4-2.0 mmol/L Calcium Level 8.8 8.7-10.4 mg/dL Magnesium Level 1.8 1.6-2.6 mg/dL Total Bilirubin 0.4 0.2-1.0 mg/dL Aspartate Amino Transferase (AST) 23 13-40 U/L Alanine Aminotransferase (ALT) 21 7-40 U/L Alkaline Phosphatase 93 46-116 U/L Total Protein 6.9 5.7-8.2 g/dL Albumin 3.8 3.2-4.8 g/dL Beta-Hydroxybutyric Acid 0.780 H < 0.4 mmol/L Test 02/05/25 23:57 Range/Units Urine Color Light-yellow Yellow Urine Clarity Clear Clear Urine pH 6.5 5.0-9.0 Urine Specific [place] 1.026 1.001-1.035 Urine Protein 2+ H Negative Urine Ketones Negative Negative Urine Blood Negative Negative /uL Urine Nitrite Negative Negative Urine Bilirubin Negative Negative Urine Urobilinogen Normal Negative mg/dL Urine Leukocyte Esterase Negative Negative /uL Urine RBC 2 0 - 3 /hpf Urine Microscopic WBC < 1 0-3 /HPF Urine Squamous Epithelial Cells None seen <5 /hpf Urine Bacteria None seen None Seen /hpf Urine Glucose 4+ H Normal mg/dL Urine Opiates Screen Neg NEGATIVE Urine Fentanyl Screen Neg NEGATIVE Urine Barbiturates Screen Neg NEGATIVE Urine Phencyclidine Screen Neg NEGATIVE Urine Amphetamines Screen Neg NEGATIVE Urine Benzodiazepines Screen Neg NEGATIVE Urine Cocaine Screen Neg NEGATIVE Urine Cannabinoids Screen Neg NEGATIVE Plan 1. Uncontrolled DM II with hyperglycemia Monitor, high dose insulin ss 2. Nausea and vomiting Monitor, IV fluids, PPI 3. Dizziness Monitor, DVT prophylaxis Plan discussed with: Patient, Other FELIXTHEE CINDY Feb 06, 2025 09:46
[2025-02-06] MEDS: hydrALAZINE HCL 20 MG/ML VL IV PRN (12:56)
--- NOTE | 2025-02-06 14:05 | DVHINCON2 ---
Date of service: Feb 06, [address] Wall Reason for Consultation Abdominal pain bloating History of Present Illness 59-year-old history of diabetes with complaints of abdominal pain came to the emergency room with abnormal blood sugars Reason for the GI consult is because of abdominal pain and heartburn and belching Patient had an EGD a few years ago which was unremarkable Patient has no GI bleeding no vomiting stefan melena or hematochezia GI consult is for abdominal pain Past Medical History Diabetes hypertension coronary artery disease hyperlipidemia Past Surgical History Had cardiac stents diff knee surgery eye surgery Family History: Diabetes mellitus G8 FATHER Family History Unremarkable Social History Denies smoking or drinking Allergies: Coded Allergies: NO KNOWN ALLERGIES (Unverified , 03/30/18) Home Meds Reported Medications Ferrous Sulfate (Ferrous Sulfate) 325 Mg Tab, 325 MG PO DAILY 06/17/20 Aspirin (Aspir-Low) 81 Mg Tab, 81 MG PO DAILY 06/17/20 Atorvastatin Calcium (ATORVASTATIN CALCIUM) 80 Mg Tab, 80 MG PO DAILY 06/17/20 Lisinopril (Lisinopril) 40 Mg Tab, 40 MG PO DAILY 06/17/20 Metformin Hydrochloride (Metformin Hcl) 500 Mg Tab, 500 MG PO IBID 06/17/20 Current Medications Current Medications Medications (Trade) Dose Ordered Sig/Myke Route PRN Reason Start Time Stop Time Status Last Admin Diagnostic Test (Pha) (Accu-Chek Comfort Curve T) 1 strip IQ4HR 02/06/25 04:00 02/06/25 12:00 Insulin Human Regular (InsuLIN R) IQ4HR SC 02/06/25 04:00 02/06/25 13:25 Dextrose 50 ml UD PRN IV Blood Sugar LESS THAN 60 02/06/25 02:00 Sodium Chloride 1,000 ml @ 200 mls/hr Q5H IV 02/06/25 02:00 02/06/25 12:29 DC 02/06/25 03:40 Acetaminophen (Tylenol Tablet) 325 mg Q4HP PRN PO MILD PAIN (1-3 PAIN SCALE) 02/06/25 02:00 Acetaminophen/ Hydrocodone Bitart ([place] 5/325MG Tab) 1 tab Q4HP PRN PO MODERATE PAIN (4-6 PAIN SCALE) 02/06/25 02:00 Temazepam (Restoril) 15 mg QHSP PRN PO FOR INSOMNIA 02/06/25 02:00 Ondansetron HCl (Zofran) 4 mg Q4HP PRN IV NAUSEA / VOMITING 02/06/25 02:00 Docusate Sodium (Colace Capsule) 100 mg BIDPRN PRN PO FOR CONSTIPATION 02/06/25 02:00 Morphine Sulfate 2 mg Q4HPRN PRN IV SEVERE PAIN (7-10 PAIN SCALE) 02/06/25 02:00 Insulin Glargine (Lantus) 10 units DAILY@1000 SC 02/06/25 10:00 Hold 02/06/25 09:12 Nitroglycerin (Ntrostat Sublingual) 0.4 mg Q5MINP PRN SL FOR CHEST PAIN 02/06/25 09:45 Morphine Sulfate 2 mg Q30M PRN IV FOR CHEST PAIN 02/06/25 09:45 Sodium Chloride 1,000 ml @ 100 mls/hr Q10H IV 02/06/25 12:30 Atorvastatin Calcium (Lipitor) 80 mg HS PO 02/06/25 22:00 Lisinopril (Zestril Tablet) 40 mg DAILY PO 02/07/25 10:00 Hydralazine HCl (Apresoline Injection) 10 mg Q6HP PRN IV SBP>150 02/06/25 12:30 02/06/25 12:56 Insulin Glargine (Lantus) 15 units BID@0700,2200 SC 02/06/25 22:00 Review of Systems Non contribute Vital Signs Vital Signs Date Time Temp Pulse Resp B/P (MAP) Pulse Ox O2 Delivery O2 Flow Rate FiO2 02/06/25 13:18 98.3 74 14 201/103 (135) 98 98.3 02/06/25 08:44 Room Air 02/06/25 01:44 0 21 Physical Exam Moderately built and nourished male in no acute distress HEENT examination no pallor no icterus Lungs are clear Cardiovascular unremarkable Abdomen is soft mildly tender in epigastrium no rigidity no guarding No masses Extremities no edema Labs/Diagnostic Data Labs Test 02/06/25 12:57 02/06/25 07:03 02/06/25 01:21 02/06/25 00:40 Range/Units POC Glucose 218 H 70-106 mg/dl Lipase 66 H 12-53 U/L Troponin I High Sensitivity 15 </=54 ng/L White Blood Count 5.7 4.4-10.8 10^3/uL Red Blood Count 4.27 L 4.5-5.90 10^6/uL Hemoglobin 11.5 L 13.5-17.5 g/dL Hematocrit 34.2 L 41.0-53.0 % Mean Corpuscular Volume 80.2 80.0-100.0 fL Mean Corpuscular Hemoglobin 26.9 L 28.0-32.0 pg Mean Corpuscular Hemoglobin Concent 33.5 32.0-36.0 g/dL Red Cell Distribution Width 15.3 H 11.8-14.3 % Platelet Count 239 140-450 10^3/uL Mean Platelet Volume 8.9 6.9-10.8 fL Neutrophils (%) (Auto) 57.4 37.0-80.0 % Lymphocytes (%) (Auto) 35.0 10.0-50.0 % Monocytes (%) (Auto) 5.8 0.0-12.0 % Eosinophils (%) (Auto) 0.8 0.0-7.0 % Basophils (%) (Auto) 1.0 0.0-2.0 % Neutrophils # (Auto) 3.3 1.6-8.6 10 ^3/uL Lymphocytes # (Auto) 2.0 0.4-5.4 10 ^3/uL Monocytes # (Auto) 0.3 0-1.3 10 ^3/uL Eosinophils # (Auto) 0 0-0.8 10 ^3/uL Basophils # (Auto) 0.1 0-0.2 10 ^3/uL Nucleated Red Blood Cells 0.0 % Sodium Level 134 L 136-145 mmol/L Potassium Level 4.2 3.5-5.1 mmol/L Chloride Level 96 L 98-107 mmol/L Carbon Dioxide Level 29 20-31 mmol/L Anion Gap 9 5-15 Blood Urea Nitrogen 22 9-23 mg/dL Creatinine 1.26 0.700-1.30 mg/dL Glomerular Filtration Rate Calc 66 >90 mL/min BUN/Creatinine Ratio 17.5 10.0-20.0 Serum Glucose 471 *H 74-106 mg/dL Lactic Acid Level 1.0 0.4-2.0 mmol/L Calcium Level 8.8 8.7-10.4 mg/dL Magnesium Level 1.8 1.6-2.6 mg/dL Total Bilirubin 0.4 0.2-1.0 mg/dL Aspartate Amino Transferase (AST) 23 13-40 U/L Alanine Aminotransferase (ALT) 21 7-40 U/L Alkaline Phosphatase 93 46-116 U/L Total Protein 6.9 5.7-8.2 g/dL Albumin 3.8 3.2-4.8 g/dL Beta-Hydroxybutyric Acid 0.780 H < 0.4 mmol/L Test 02/05/25 23:57 Range/Units Urine Color Light-yellow Yellow Urine Clarity Clear Clear Urine pH 6.5 5.0-9.0 Urine Specific [place] 1.026 1.001-1.035 Urine Protein 2+ H Negative Urine Ketones Negative Negative Urine Blood Negative Negative /uL Urine Nitrite Negative Negative Urine Bilirubin Negative Negative Urine Urobilinogen Normal Negative mg/dL Urine Leukocyte Esterase Negative Negative /uL Urine RBC 2 0 - 3 /hpf Urine Microscopic WBC < 1 0-3 /HPF Urine Squamous Epithelial Cells None seen <5 /hpf Urine Bacteria None seen None Seen /hpf Urine Glucose 4+ H Normal mg/dL Urine Opiates Screen Neg NEGATIVE Urine Fentanyl Screen Neg NEGATIVE Urine Barbiturates Screen Neg NEGATIVE Urine Phencyclidine Screen Neg NEGATIVE Urine Amphetamines Screen Neg NEGATIVE Urine Benzodiazepines Screen Neg NEGATIVE Urine Cocaine Screen Neg NEGATIVE Urine Cannabinoids Screen Neg NEGATIVE Assessment 59-year-old with complaints of abdominal pain nausea belching bloating history of diabetes with high blood sugars came to the ER patient has a GI workup in the past about few years ago was unremarkable no hematemesis or melena or hematochezia Physical examination is unremarkable CT scan is unremarkable Physical clinical impression abdominal pain possible gastritis possible gastroparesis rule out ulcers Plan/Recommendation We will recommend symptomatic treatment with PPIs or Pepcid We will if symptoms persist may need further evaluation as necessary which could be done as an outpatient also. Recommend to control the blood sugars aggressively Thank you Dr. Wall Plan discussed with: Patient ALMAS WALL MD Feb 06, 2025 14:05
[2025-02-06] MEDS ORDERED: INFLUENZA TRIVALENT 2024-2025 0.5 ML INJ IM ONE (14:30)
[2025-02-06] MEDS ORDERED: METF-370 PO (14:39)
[2025-02-06] MEDS ORDERED: METO-158 PO (16:56)
--- NOTE | 2025-02-06 19:39 | ECG ---
[facility] Test Date: 2025-02-05 Test Time: 23:34:38 Pat Name: DANAE RICHARD Department: ER Room: 0251T Gender: M Consulting Sme: CAS : [id number] Requested By: EMERGENCY EMERGENCY Order Number: [id number] Reading MD: Darwin Herndon Measurements Intervals [place] Rate: 68 P: 15 [place]: 162 QRS: -4 QRSD: 92 T: 108 QT: 396 QTc: 422 Interpretive Statements Sinus rhythm Abnormal T, consider ischemia, lateral leads ST elevation, consider anterior injury Electronically Signed On 02-09-2025 17:49:31 PST by Darwin Herndon Please click the below link to view image of tracing.
[2025-02-06] MEDS: ATORVASTATIN 20 MG TAB PO SCH (21:41)
[2025-02-07] VITALS (8 sets, daily range): BP systolic 112–188; BP diastolic 75–115; PULSE 75–91; RESP 12–18; TEMP 97.7–98.2; O2SAT 95–98
[2025-02-07 09:09] LABS: Hematocrit 34.6 % (41.0-53.0); Hemoglobin 11.5 g/dL (13.5-17.5); Mean Corpuscular Hemoglobin 26.6 pg (28.0-32.0); Mean Corpuscular Volume 80.2 fL (80.0-100.0); Nucleated Red Blood Cells % 0.0 %
[2025-02-07 09:26] LABS: Alanine Aminotransferase 17 U/L (7-40); Albumin 3.4 g/dL (3.2-4.8); Alkaline Phosphatase 77 U/L (46-116); Anion Gap 9 (5-15); BUN/Creatinine Ratio 10.2 (10.0-20.0); Carbon Dioxide 26 mmol/L (20-31); Sodium 142 mmol/L (136-145); Total Protein 6.2 g/dL (5.7-8.2)
[2025-02-07 09:27] LABS: Bilirubin, Total 0.5 mg/dL (0.2-1.0)
[2025-02-07 09:28] LABS: Blood Urea Nitrogen 9 mg/dL (9-23); Calcium 8.3 mg/dL (8.7-10.4); Chloride 107 mmol/L (98-107); Glucose 259 mg/dL (74-106); Potassium 3.3 mmol/L (3.5-5.1)
[2025-02-07] MEDS: LISINOPRIL 20 MG TAB PO SCH (10:01)
--- NOTE | 2025-02-07 16:22 | DVHPN2 ---
Progress Note - Dictate Date Seen: Feb 07, 2025 Medical Necessity Reason Pt with a Central, PICC or Fol: No vital signs Vital Sign Date Time Temp Pulse Resp B/P (MAP) Pulse Ox O2 Delivery O2 Flow Rate FiO2 02/07/25 13:00 98.0 89 16 188/115 (139) 97 98.0 02/07/25 08:00 Room Air* 0 21 Total Intake and Output 02/06/25 02/06/25 02/07/25 15:00 23:00 07:00 Intake Total 2000 ml 1125 ml 600 ml Output Total 600 ml 2000 ml Balance 1400 ml -875 ml 600 ml medications Current Medications Medications Dose Ordered Sig/Myke Route Start Time Stop Time Status Last Admin Dose Admin Acetaminophen 325 mg Q4HP PRN PO 02/06/25 02:00 Acetaminophen/ Hydrocodone Bitart 1 tab Q4HP PRN PO 02/06/25 02:00 Temazepam 15 mg QHSP PRN PO 02/06/25 02:00 Ondansetron HCl 4 mg Q4HP PRN IV 02/06/25 02:00 Docusate Sodium 100 mg BIDPRN PRN PO 02/06/25 02:00 Morphine Sulfate 2 mg Q4HPRN PRN IV 02/06/25 02:00 Nitroglycerin 0.4 mg Q5MINP PRN SL 02/06/25 09:45 Morphine Sulfate 2 mg Q30M PRN IV 02/06/25 09:45 Sodium Chloride 1,000 ml @ 100 mls/hr Q10H IV 02/06/25 12:30 02/07/25 08:30 100 MLS/HR Atorvastatin Calcium 80 mg HS PO 02/06/25 22:00 02/06/25 21:41 80 MG Lisinopril 40 mg DAILY PO 02/07/25 10:00 02/07/25 10:01 40 MG Hydralazine HCl 10 mg Q6HP PRN IV 02/06/25 12:30 02/07/25 11:48 10 MG Diagnostic Test (Pha) 1 strip ACHS 02/07/25 17:00 UNV Insulin Human Regular ACHS SC 02/07/25 17:00 UNV Dextrose 50 ml UD PRN IV 02/07/25 16:30 UNV Insulin Glargine 5 units HS SC 02/07/25 22:00 UNV objective General Appearance: alert, no distress HEENT: EOMI, PERRLA, normal external inspect of ears, no icterus, no nasal drainage Neck: no carotid bruit, no jugular venous distention (JVD), no lymphadenopathy Chest: normal thorax Respiratory: clear to auscultation, normal air movement Cardiovascular: regular rate and rhythm, no diastolic murmur, no jugular venous distention (JVD), no rub, no systolic murmur Abdominal: soft, no hepatomegaly, no mass, no splenomegaly, no tenderness Genitourinary: grossly normal external Musculoskeletal: no joint tenderness, no swelling Extremities: normal pulses, no calf tenderness, no clubbing, no cyanosis, no edema Skin: no bruising, no jaundice, no rash Neurological: alert, No focal deficit laboratory and microbiology Laboratory Tests 02/07/25 08:23 Test 02/07/25 08:23 Range/Units Serum Glucose 259 #H 74-106 mg/dL Problem List 1. Uncontrolled DM II with hyperglycemia Monitor, high dose insulin ss 2. Nausea and vomiting Monitor, IV fluids, PPI 3. Dizziness Monitor, DVT prophylaxis Assessment/Plan Subjective: Patient is awake and alert. Objective: Patient was admitted for uncontrolled diabetes with glucose levels over 500. He had nausea, vomiting, and abdominal pain. Patient was seen by GI and will continue PPI. Plan: Advance to low-carbohydrate diet. Decrease sliding scale to low-dose insulin sliding scale. Patient and were educated. Hemoglobin A1c is pending. Discharge planning for tomorrow. Plan discussed with: Patient, Other THEE WASHINGTON NP Feb 07, 2025 16:22
[2025-02-07] MEDS: ACCU-CHEK COMFORT CURVE STRIP VI SCH (16:28)
[2025-02-07] MEDS: InsuLIN REG 1unit/0.01ml Soln (100units/ml) SC SCH (16:28)
[2025-02-07] MEDS ORDERED: DEXTROSE (50%) 50ML SYRG IV PRN (16:30)
[2025-02-07] MEDS: POTASSIUM CHL 20 Meq TABLET PO ONE (16:37)
[2025-02-07] MEDS: INSULIN LANTUS (GLARGINE) 1 /0.01ml (100units/ml) SC SCH (21:18)
[2025-02-08 01:00] VITALS: BP 117/84; PULSE 85; RESP 12; TEMP 98.1; O2SAT 97
[2025-02-08 05:00] VITALS: BP 114/67; PULSE 74; RESP 16; TEMP 97.8; O2SAT 96
[2025-02-08 07:10] LABS: Anion Gap 12 (5-15); Carbon Dioxide 25 mmol/L (20-31); Sodium 144 mmol/L (136-145)
[2025-02-08 07:13] LABS: Calcium 8.7 mg/dL (8.7-10.4); Chloride 107 mmol/L (98-107); Potassium 3.3 mmol/L (3.5-5.1)
[2025-02-08 07:16] LABS: BUN/Creatinine Ratio 12.8 (10.0-20.0); Blood Urea Nitrogen 10 mg/dL (9-23)
[2025-02-08 07:17] LABS: Glucose 131 mg/dL (74-106); Magnesium 1.5 mg/dL (1.6-2.6)
[2025-02-08 08:00] VITALS: RESP 18
--- NOTE | 2025-02-08 08:12 | DVHDS2 ---
Discharge Summary Date of Admission Feb 06, 2025 at 09:45 Date of Discharge: Feb 08, 2025 Labs/Diagnostic Data: Laboratory Results Test 02/08/25 05:59 02/08/25 05:46 02/07/25 08:32 02/07/25 08:23 Sodium Level 144 mmol/L (136-145) Potassium Level 3.3 mmol/L (3.5-5.1) Chloride Level 107 mmol/L (98-107) Carbon Dioxide Level 25 mmol/L (20-31) Anion Gap 12 (5-15) Blood Urea Nitrogen 10 mg/dL (9-23) Creatinine 0.78 mg/dL (0.700-1.30) Glomerular Filtration Rate Calc 103 mL/min (>90) BUN/Creatinine Ratio 12.8 (10.0-20.0) Serum Glucose 131 mg/dL (74-106) Calcium Level 8.7 mg/dL (8.7-10.4) Magnesium Level 1.5 mg/dL (1.6-2.6) POC Glucose 139 mg/dl (70-106) Hemoglobin A1c > 14.0 % A1C (<5.7) Lipase 52 U/L (12-53) Beta-Hydroxybutyric Acid 0.486 mmol/L (< 0.4) White Blood Count 6.2 10^3/uL (4.4-10.8) Red Blood Count 4.31 10^6/uL (4.5-5.90) Hemoglobin 11.5 g/dL (13.5-17.5) Hematocrit 34.6 % (41.0-53.0) Mean Corpuscular Volume 80.2 fL (80.0-100.0) Mean Corpuscular Hemoglobin 26.6 pg (28.0-32.0) Mean Corpuscular Hemoglobin Concent 33.1 g/dL (32.0-36.0) Red Cell Distribution Width 15.8 % (11.8-14.3) Platelet Count 249 10^3/uL (140-450) Mean Platelet Volume 9.0 fL (6.9-10.8) Neutrophils (%) (Auto) 77.4 % (37.0-80.0) Lymphocytes (%) (Auto) 16.8 % (10.0-50.0) Monocytes (%) (Auto) 4.6 % (0.0-12.0) Eosinophils (%) (Auto) 0.2 % (0.0-7.0) Basophils (%) (Auto) 1.0 % (0.0-2.0) Neutrophils # (Auto) 4.8 10 ^3/uL (1.6-8.6) Lymphocytes # (Auto) 1.0 10 ^3/uL (0.4-5.4) Monocytes # (Auto) 0.3 10 ^3/uL (0-1.3) Eosinophils # (Auto) 0 10 ^3/uL (0-0.8) Basophils # (Auto) 0.1 10 ^3/uL (0-0.2) Nucleated Red Blood Cells 0.0 % Total Bilirubin 0.5 mg/dL (0.2-1.0) Aspartate Amino Transferase (AST) 21 U/L (13-40) Alanine Aminotransferase (ALT) 17 U/L (7-40) Alkaline Phosphatase 77 U/L (46-116) Total Protein 6.2 g/dL (5.7-8.2) Albumin 3.4 g/dL (3.2-4.8) Test 02/06/25 01:21 02/06/25 00:40 02/05/25 23:57 Troponin I High Sensitivity 15 ng/L (</=54) Lactic Acid Level 1.0 mmol/L (0.4-2.0) Urine Color Light-yellow (Yellow) Urine Clarity Clear (Clear) Urine pH 6.5 (5.0-9.0) Urine Specific [place] 1.026 (1.001-1.035) Urine Protein 2+ (Negative) Urine Ketones Negative (Negative) Urine Blood Negative /uL (Negative) Urine Nitrite Negative (Negative) Urine Bilirubin Negative (Negative) Urine Urobilinogen Normal mg/dL (Negative) Urine Leukocyte Esterase Negative /uL (Negative) Urine RBC 2 /hpf (0 - 3) Urine Microscopic WBC < 1 /HPF (0-3) Urine Squamous Epithelial Cells None seen /hpf (<5) Urine Bacteria None seen /hpf (None Seen) Urine Glucose 4+ mg/dL (Normal) Urine Opiates Screen Neg (NEGATIVE) Urine Fentanyl Screen Neg (NEGATIVE) Urine Barbiturates Screen Neg (NEGATIVE) Urine Phencyclidine Screen Neg (NEGATIVE) Urine Amphetamines Screen Neg (NEGATIVE) Urine Benzodiazepines Screen Neg (NEGATIVE) Urine Cocaine Screen Neg (NEGATIVE) Urine Cannabinoids Screen Neg (NEGATIVE) Other Laboratory Tests 02/08/25 05:59 02/07/25 08:23 Brief Hx & Hospital Course: 59-year-old male who came to ER for high blood sugar. For the past 2 weeks, patient has been experiencing abdominal discomfort, associated dizziness and lightheadedness, and dysuria. Noted also that his blood sugar levels has been elevated despite taking his metformin. Blood sugar level was 515 earlier. Denies any nausea or vomiting or fever While in the emergency department the patient was evaluated by the provider, As per provider: Labs, vital signs, and imagining monitored. Patient was admitted hyperglycemia and control diabetes. Hemoglobin A1c was over 14. Patient was started on a high dose insulin sliding scale. Patient was given extensive diabetic education and controlling his diet. Patient states he will follow-up with his PCP to determine if he will start insulin. I also spoke with patient's and they are going to correct patient's diet. Patient's glucose levels became stable in the 100s. He was restarted on metformin. He is to see his PCP in 1 week. The patient received proper medical treatment and medications. Vital signs, Imaging and Laboratory Work was monitored daily. All consults recommendations were followed as provided. There were no complaints or new complaints upon discharge, all questions and concerns were answered. Patient was advised to return to the ER or call 911 if any headaches, dizziness, shortness of breath, chest pain, bleeding, fevers, or worsening of medical condition. Patient/Family was counseled about treatment plan, medications, possible side effects, patient verbalized understanding. All questions were answered to the best of my ability. The patient symptoms improved and they are okay to be DC. Condition at Discharge: Good Final Diagnosis/Problems List Uncontrolled DM II with hyperglycemia Nausea and vomiting Dizziness Discharge Disposition: Home Discharge Instruct/Medications Diet: Consistent carbohydrate, Cardiac 2g Na,low cholest Activity: No Restrictions, As Tolerated Follow Up/Referral: pcp 1 week Scheduled Aspirin (Aspir-Low), 81 MG PO DAILY, (Reported) Atorvastatin Calcium (Atorvastatin Calcium), 80 MG PO DAILY, (Reported) Ferrous Sulfate (Ferrous Sulfate), 325 MG PO DAILY, (Reported) Lisinopril (Lisinopril), 40 MG PO DAILY, (Reported) Metformin Hydrochloride (Metformin Hcl), 1,000 MG PO IBID, (Reported) Metoprolol Tartrate (Metoprolol Tartrate), 50 MG PO BID, (Reported) Discharge Statement: "Patient was advised to return to the ER or call 911 if any headaches, dizziness, shortness of breath, chest pain, abdominal pain, bleeding, fevers, or worsening of medical condition. Patient was counseled about treatment plan, medications, possible side effects, patientverbalized understanding. All questions were answered to the best of my ability. This discharge took greater then 30 minutes in planning, reviewing documentation, counseling the patient, and discussing with other team members." ASSESSMENT ASSESSMENT Assessment uncontrolled diabetes type 2 THEE WASHINGTON NP Feb 08, 2025 08:12
[2025-02-08 08:54] VITALS: BP 115/77; PULSE 77; RESP 17; TEMP 97.9; O2SAT 97
[2025-02-08] MEDS: POTASSIUM CHL 20 Meq TABLET PO ONE (08:56)
[2025-02-08] MEDS: MAGNESIUM SULFATE 1GM/100ML 100 ML IV SCH (09:00)
[2025-02-08 09:28] VITALS: BP 188/115; TEMP 36.6
== END 2025-02-08 09:50 | disposition home or self-care (01) | DRG 420 ==
LOC: ER 23:23 → OVERFLOW 02-06 09:45 → TELE-EAST 02-06 22:29
PROVIDERS: ADMIT Nurse Practitioner; ATTEND Nurse Practitioner
DX: E11.65 Type 2 diabetes mellitus with hyperglycemia (principal); I16.0 Hypertensive urgency; J45.909 Unspecified asthma, uncomplicated; I10 Essential (primary) hypertension; E78.5 Hyperlipidemia, unspecified; I25.10 Atherosclerotic heart disease of native coronary artery without angina pectoris; Z95.5 Presence of coronary angioplasty implant and graft; Z95.1 Presence of aortocoronary bypass graft; Z83.3 Family history of diabetes mellitus; Z79.4 Long term (current) use of insulin
CPT/HCPCS: 36415; 71045; 74176; 80048; 80053; 80307; 81001; 82010; 82962; 83036; 83605; 83690; 83735; 84484; 85025; 90656; 93005; 96361; 96374; 99291; G0378; J1815